=== PATIENT | male | born 1980 | race Caucasian/White ===

== ENCOUNTER 2017-01-13 06:10 | Day surgery (SDC) | payer OTHER ==
[2017-01-13] VITALS (19 sets, daily range): BP systolic 108–124; BP diastolic 69–84; PULSE 65–78; RESP 12–20; Ht 180.3 cm; Wt 101.0 kg
[~2017-01-13] VITALS: Ht 180.3 cm; Wt 101.0 kg
[2017-01-13] MEDS ORDERED: NIT4 SL (06:59)
[2017-01-13] MEDS ORDERED: POTA10TA6 PO (06:59)
[2017-01-13] MEDS ORDERED: ATOR10TA65 PO (07:00)
[2017-01-13] MEDS ORDERED: PROP10TA6 PO (07:00)
[2017-01-13] MEDS ORDERED: ISOS30TA5 PO (07:01)
[2017-01-13] MEDS ORDERED: ASPI-664 PO (07:01)
[2017-01-13] MEDS ORDERED: MONT10TA24 PO (07:04)
[2017-01-13] MEDS ORDERED: AMPH20TA2 PO (07:04)
[2017-01-13] MEDS ORDERED: FENO160T13 PO (07:05)
[2017-01-13] MEDS ORDERED: RANO500T2 PO (07:05)
[2017-01-13] MEDS ORDERED: LIDOCAINE 1% (MDV) 20 ML INJ ONE (09:02)
[2017-01-13] MEDS ORDERED: NITROGLYCERIN (IC) 100 MCG/ML INJ ONE (09:02)
[2017-01-13] MEDS ORDERED: MIDAZOLAM 1 MG/ML 2 ML INJ ONE (09:02)
[2017-01-13] MEDS ORDERED: FENTAnyl 50 MCG/ML VIAL ONE (09:02)
[2017-01-13] MEDS ORDERED: VERAPAMIL 5 MG INJ ONE (09:02)
[2017-01-13] MEDS ORDERED: HEPARIN 1000 UNITS/ML 10 ML INJ ONE (09:02)
[2017-01-13] MEDS ORDERED: IODIXANOL LOCM 100 ML BTL ONE (09:02)
[2017-01-13] MEDS ORDERED: SOD CHLORIDE 0.9% 1,000 ML IV SCH (10:02)
--- NOTE | 2017-01-13 10:02 | SIPON ---
Date/Time of Note Date/Time of Note DATE: 01/13/17 TIME: 10:01 Operative Report Preoperative Diagnosis 1.abnl mpi 2.chest pain Postoperative Diagnosis 1.non-obstructive cad 2.Myocardial bridge Operation/Procedure Performed 1.[facility] Surgeon see signature line assistant pastry chef Mariluz Anesthesia: moderate sedation Estimated blood loss: minimal Transfusion Required none Specimen NA Grafts/Implants none Complications none ANIL CASAREZ Jan 13, 2017 10:02
--- NOTE | 2017-01-13 10:02 | SIPON ---
Date/Time of Note Date/Time of Note DATE: 01/13/17 TIME: 10:01 Operative Report Preoperative Diagnosis 1.abnl mpi 2.chest pain Postoperative Diagnosis 1.non-obstructive cad 2.Myocardial bridge Operation/Procedure Performed 1.[facility] Surgeon see signature line senior assistant manager Mariluz Anesthesia: moderate sedation Estimated blood loss: minimal Transfusion Required none Specimen NA Grafts/Implants none Complications none ANIL CASAREZ Jan 13, 2017 10:02
[2017-01-13] MEDS ORDERED: ONDANSETRON 4 MG INJ IV PRN (10:30)
[2017-01-13] MEDS ORDERED: AL HYDROX/MG HYDROX/SIMETH 30 ML CUP PO PRN (10:30)
--- NOTE | 2017-01-13 14:46 | CARRPT ---
DATE OF PROCEDURE: 01/13/2017 TYPE OF PROCEDURE: 1. Left heart catheterization. 2. Coronary angiography. ATTENDING PHYSICIAN: Dr. Anil Singleton MD REFERRING PHYSICIAN: Dr. Ryan Gross. INDICATION: Chest pain with positive stress test findings for anterior ischemia. TYPE OF ANESTHESIA: Conscious and local. BRIEF HISTORY: Mr. Trimble is a 36-year-old male with history of hypertension, dyslipidemia who initia lly presented with complaints of substernal chest pain. The patient subsequently underwent a cardia c stress test showing positive ischemia. The patient thus referred for left heart catheterization t o assess for the possibility of significant obstructive coronary artery disease lending to symptoms of chest pain and subsequent positive stress test findings. PROCEDURE: After informed consent was obtained, the patient was brought to the [facility] catheterization lab where his right radial area was prepped and draped in usual sterile fashion. Lidocaine 2% solution to the right radial area and nurse achieve adequate local anesthesia. Using the modified Seldinger technique, the radial artery was cannulated and a 6-Greenlandic sheath was placed . A 6-Greenlandic JL3.5 catheter was used to cath the left main coronary ostium with contrast injection, multiple views of the left coronary arterial system were obtained. JL3.5 over a guidewire and a JR 4 was used to cannulate the right coronary arterial ostium. With contrast injection, multiple views of the right coronary arterial system were obtained. JR4 was removed over a guidewire and a 6-Fren ch pigtail was passed down the ascending aorta and placed in the left ventricle, 20 mL of contrast w ere injected. Pigtail catheter was then pulled back across the aortic valve to assess for significa nt gradient, which there was not and removed. Subsequently, at this time, this completed the proced ure, patient's sheath was removed, was applied. There were no noted complications. FINDINGS: Coronary angiography: Left main 4 mm, no significant stenoses. Circumflex proximally is a 3.5 mm v essel and has no significant focal stenosis throughout its entirety. The LAD proximally is a 4 mm v essel and has no significant stenosis proximal portion. In the mid portion of the vessel, there is a mild myocardial bridge with incomplete compression. The remainder of the LAD is free from focal s tenoses proximal branching diagonal 2 mm vessel with no significant focal stenoses. Right coronary proximally 3 mm vessel, had some mild luminal irregularities up to 10-20% in its mid portion remaind er of the right coronary artery is free of significant focal stenoses, dominant vessel, gives off a 2.3 mm PDA and a 2.5 mm posterolateral branch, each with no significant focal stenoses. Left ventriculogram: The left ventricular ejection fraction of 60% to 65%. Left ventricular diasto lic rate of 16 pre-LV gram 19, post-LV gram no significant stenosis. TOTAL FLUOROSCOPY TIME: 2 minutes. TOTAL CONTRAST: 80 mL. IMPRESSION: 1. normal coronary arteries with very mild nonobstructive coronary artery disease. 2. 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 3. Preserved left ventricular systolic function. 4. High normal left heart filling pressures. 5. No significant aortic stenosis by gradient. 6. One plus mitral regurgitation. RECOMMENDATIONS: In light of procedure findings at this time would: 1. Maximize medical management. 2. Aggressive risk factor reduction. 3. The patient will be readmitted to same day surgery center for post-catheterization observation a nd continued management of symptoms and probable discharge later this afternoon. Dictated By: ANIL MAYFIELD/PATIENCE Conf#: [id number] DID#: [id number]
--- NOTE | 2017-01-13 15:36 | RADRPT ---
PROCEDURE: XR Chest. CLINICAL INDICATION: Chest pain TECHNIQUE: Single frontal view of the chest was obtained COMPARISON: None FINDINGS: The heart and mediastinum are within normal limits. The lungs are clear. There is no pleural effusion or pneumothorax. The bones and soft tissue show no acute change. IMPRESSION: No definite abnormalities are identified. RPTAT:AAJJ Jose Daniel Cooper Physician Date Time Electronically viewed and signed by Jose Daniel Cooper Physician on 01/13/2017 15:36 /
--- NOTE | 2017-01-14 13:31 | RADRPT ---
Vent Rate: 70 bpm RR Interval: 0 msec NE Interval: 164 msec QRS Duration: 84 msec QT Interval: 370 msec QTC Interval: 399 msec P-R-T [place]: 51 - 66 - 50 degrees Normal sinus rhythm Normal ECG Electronically Signed By: Carlos Pinzon [id number]
--- NOTE | 2017-01-14 13:31 | RADRPT ---
Vent Rate: 70 bpm RR Interval: 0 msec SD Interval: 164 msec QRS Duration: 84 msec QT Interval: 370 msec QTC Interval: 399 msec P-R-T [place]: 51 - 66 - 50 degrees Normal sinus rhythm Normal ECG Electronically Signed By: Carlos Pinzon [id number]
== END 2017-01-13 13:32 | disposition home or self-care (01) ==
LOC: SDS 06:10
PROVIDERS: ATTEND Internal Medicine
DX: I34.0 Nonrheumatic mitral (valve) insufficiency (principal); R07.9 Chest pain, unspecified; R94.31 Abnormal electrocardiogram [ECG] [EKG]
CPT/HCPCS: 71010; 80048; 80061; 85025; 85610; 85730; 93005; 93458; C1887; J1644; J2250; J3010; Q9967